=== PATIENT | male | born 1990 | race Caucasian/White ===

== ENCOUNTER 2017-05-03 09:17 | Observation (INO) | payer SELFPAY ==
[2017-05-03 09:20] VITALS: BP 132/85; PULSE 66; RESP 18; TEMP 98; O2SAT 100
--- NOTE | 2017-05-03 10:14 | PD ---
HPI Chief Complaint: Chest Pain Time Seen by Provider: 10:11 Travel History International Travel<30 days: Yes Contact w/Intl Traveler<30days: Yes Name of Country Traveled to: 04/14/17 [place] Traveled to known affect area: Yes History of Present Illness HPI 27-year-old male patient presents to the ER today with sudden onset of substernal chest pain which he states has now subsided is now a 2 out of 10. She states that it works is worse with movements and taking a deep breath. He denies any shortness of breath, coughing, or any other symptoms. He states that he had been on a cruise a few weeks ago to the [facility]. Denies any leg swelling or leg pain. He states it started when he was moving stuff and working on his car. Modifying Factors: Worse with movement and deep breath Associated Signs & Symptoms: Substernal chest pain Risk Factors: Recent trip PFSH Social History Tobacco Use: No Allergies-Medications Reported Meds & Prescriptions Reported Meds & Active Scripts Active Reported Oxycodone (Oxycodone HCl) 5 Mg Cap 5 Mg PO Q6H PRN Metoprolol Succinate ER 24 HR (Metoprolol Succinate) 100 Mg Tab 100 Mg PO DAILY Lisinopril 10 Mg Tab 10 Mg PO DAILY Glucose (Dextrose) 4 Gm Chew 4 Gm CHEW DIRECTED Flexeril (Cyclobenzaprine HCl) 10 Mg Tab 10 Mg PO TID Atorvastatin (Atorvastatin Calcium) 80 Mg Tab 80 Mg PO HS Citalopram (Citalopram Hydrobromide) 20 Mg Tab 20 Mg PO DAILY Aspirin Low Dose (Aspirin) 81 Mg Chew 81 Mg CHEW DAILY Review of Systems Except as stated in HPI: all other systems reviewed are Neg Physical Exam Narrative GENERAL: Well-developed young male patient currently in mild distress. Awake and oriented 3. SKIN: Focused skin assessment warm/dry. HEAD: Atraumatic. Normocephalic. EYES: Pupils equal and round. No scleral icterus. No injection or drainage. ENT: No nasal bleeding or discharge. Mucous membranes pink and moist. NECK: Trachea midline. No JVD. Supple. CARDIOVASCULAR: Regular rate and rhythm. No murmur appreciated. RESPIRATORY: No accessory muscle use. Clear to auscultation. Breath sounds equal bilaterally. GASTROINTESTINAL: Abdomen soft, non-tender, nondistended. Hepatic and splenic margins not palpable. MUSCULOSKELETAL: No obvious deformities. No clubbing. No cyanosis. No edema. NEUROLOGICAL: Awake and alert. No obvious cranial nerve deficits. Motor grossly within normal limits. Normal speech. PSYCHIATRIC: Appropriate mood and affect; insight and judgment normal. Data Data Last Documented VS Vital Signs Date Time Temp Pulse Resp B/P (MAP) Pulse Ox O2 Delivery O2 Flow Rate FiO2 05/03/17 10:47 100 Room Air 05/03/17 10:47 05/03/17 09:42 59 18 05/03/17 09:20 98.0 Orders Orders Electrocardiogram (05/03/17 10:11) Basic Metabolic Panel (Bmp) (05/03/17 10:11) Ckmb (Isoenzyme) Profile (05/03/17 10:11) Complete Blood Count With Diff (05/03/17 10:11) D-Dimer (05/03/17 10:11) Magnesium (Mg) (05/03/17 10:11) Prothrombin Time / Inr (Pt) (05/03/17 10:11) Act Partial Throm Time (Ptt) (05/03/17 10:11) Troponin I (05/03/17 10:11) Chest, Single Ap (05/03/17 10:11) Ecg Monitoring (05/03/17 10:11) Bilateral Bp Monitoring (05/03/17 10:11) Iv Access Insert/Monitor (05/03/17 10:11) Oximetry (05/03/17 10:11) Oxygen Administration (05/03/17 10:11) CKMB (05/03/17 10:43) CKMB% (05/03/17 10:43) Admit Order (Ed Use Only) (05/03/17 12:05) Labs Laboratory Tests Test 05/03/17 10:43 White Blood Count 5.9 TH/MM3 Red Blood Count 5.18 MIL/MM3 Hemoglobin 15.0 GM/DL Hematocrit 43.2 % Mean Corpuscular Volume 83.4 FL Mean Corpuscular Hemoglobin 29.0 PG Mean Corpuscular Hemoglobin Concent 34.8 % Red Cell Distribution Width 13.1 % Platelet Count 233 TH/MM3 Mean Platelet Volume 8.4 FL Neutrophils (%) (Auto) 55.6 % Lymphocytes (%) (Auto) 33.2 % Monocytes (%) (Auto) 8.5 % Eosinophils (%) (Auto) 1.9 % Basophils (%) (Auto) 0.8 % Neutrophils # (Auto) 3.3 TH/MM3 Lymphocytes # (Auto) 1.9 TH/MM3 Monocytes # (Auto) 0.5 TH/MM3 Eosinophils # (Auto) 0.1 TH/MM3 Basophils # (Auto) 0.0 TH/MM3 CBC Comment DIFF FINAL Differential Comment Prothrombin Time 10.6 SEC Prothromb Time International Ratio 1.0 RATIO Activated Partial Thromboplast Time 28.9 SEC D-Dimer Quantitative (PE/DVT) 0.27 MG/L FEU Blood Urea Nitrogen 14 MG/DL Creatinine 0.97 MG/DL Random Glucose 90 MG/DL Calcium Level 8.9 MG/DL Magnesium Level 2.3 MG/DL Sodium Level 137 MEQ/L Potassium Level 3.9 MEQ/L Chloride Level 101 MEQ/L Carbon Dioxide Level 27.9 MEQ/L Anion Gap 8 MEQ/L Estimat Glomerular Filtration Rate 92 ML/MIN Total Creatine Kinase 132 U/L Creatine Kinase MB 0.9 NG/ML Troponin I LESS THAN 0.02 NG/ML MDM Medical Decision Making Medical Screen Exam Complete: Yes Emergency Medical Condition: Yes Medical Record Reviewed: Yes Interpretation(s) EKG shows sinus bradycardia at a rate of 57 bpm, no ST elevation or depression, and no arrhythmias. No significant T-wave inversions. Laboratory Tests Test 05/03/17 10:43 Monocytes (%) (Auto) 8.5 % (0.0-8.0) Troponin I LESS THAN 0.02 NG/ML Last 24 hours Impressions Chest X-Ray 05/03/17 1011 Signed Impressions: Service Date/Time: Wednesday, May 03, 2017 10:15 - CONCLUSION: No acute disease. Jose Soto MD Differential Diagnosis Substernal chest pain: Musculoskeletal versus pneumothorax versus PE versus ACS Narrative Course Chest x-ray is unremarkable. D-dimer is negative. EKG did not show significant ST elevations or depressions. Cardiac enzymes are negative. However, this chest pain just started and will need to be evaluated further. Plan to admit the patient to chest pain center for further evaluation. Diagnosis Primary Impression: Atypical chest pain Admitting Information Admitting Physician Requests: Admit Marielos Ley MD May 03, 2017 10:14
[2017-05-03] MEDS ORDERED: METO1TAB43 PO (10:46)
[2017-05-03] MEDS ORDERED: CYCL10TA PO (10:46)
[2017-05-03] MEDS ORDERED: ASPI81CH6 CHEW (10:46)
[2017-05-03] MEDS ORDERED: GLUC4CHW CHEW (10:46)
[2017-05-03] MEDS ORDERED: CITA20TA4 PO (10:46)
[2017-05-03] MEDS ORDERED: ATOR80TA45 PO (10:46)
[2017-05-03] MEDS ORDERED: OXYC1CAP PO (10:46)
[2017-05-03] MEDS ORDERED: LISI10TA3 PO (10:46)
[2017-05-03 10:47] VITALS: O2SAT 100
[2017-05-03 11:03] LABS: AUTOMATED NEUTROPHIL # 3.3 TH/MM3 (1.8-7.7); BASOPHIL % 0.8 % (0.0-2.0); EOSINOPHIL # 0.1 TH/MM3 (0-0.4); EOSINOPHIL % 1.9 % (0.0-4.0); HEMATOCRIT 43.2 % (39.0-51.0); LYMPH % 33.2 % (9.0-44.0); LYMPHOCYTE # 1.9 TH/MM3 (1.0-4.8); MEAN CELL VOLUME 83.4 FL (80.0-100.0); MEAN CORPUSCULAR HGB CONC 34.8 % (32.0-36.0); MEAN PLATELET VOLUME 8.4 FL (7.0-11.0); MONO % 8.5 % (0.0-8.0); MONOCYTE # 0.5 TH/MM3 (0-0.9); NEUT % 55.6 % (16.0-70.0); PLATELET COUNT 233 TH/MM3 (150-450); RED BLOOD COUNT 5.18 MIL/MM3 (4.50-5.90); RED CELL DISTRIBUTION WIDTH 13.1 % (11.6-17.2); WHITE BLOOD COUNT 5.9 TH/MM3 (4.0-11.0)
[2017-05-03 11:19] LABS: BICARBONATE 27.9 MEQ/L (21.0-32.0); BLOOD UREA NITROGEN 14 MG/DL (7-18); CALCIUM 8.9 MG/DL (8.5-10.1); CHLORIDE 101 MEQ/L (98-107); CREATININE 0.97 MG/DL (0.60-1.30); D-DIMER 0.27 MG/L FEU (0.00-0.50); GLOMERULAR FILTRATION RATE 92 ML/MIN (>89); GLUCOSE,RANDOM 90 MG/DL (74-106); MAGNESIUM 2.3 MG/DL (1.5-2.5); PROTHROMBIN TIME - PATIENT 10.6 SEC (9.8-11.6); SODIUM (NA) 137 MEQ/L (136-145)
[2017-05-03 11:25] LABS: TROPONIN I LESS THAN 0.02 NG/ML (0.02-0.05)
--- NOTE | 2017-05-03 11:57 | RADRPT ---
EXAM DATE/TIME: 05/03/2017 10:15 [facility] COMPARISON: No previous studies available for comparison. INDICATIONS : Chest pain. MEDICAL HISTORY : None. SURGICAL HISTORY : None. ENCOUNTER: Initial ACUITY: 1 day PAIN SCORE: 2/10 LOCATION: Bilateral chest FINDINGS: A single view of the chest demonstrates the lungs to be symmetrically aerated without evidence of mas s, infiltrate or effusion. The cardiomediastinal contours are unremarkable. Osseous structures are intact. CONCLUSION: No acute disease. Jose Soto MD on May 03, 2017 at 11:54 Board Certified Radiologist. This report was verified electronically.
[2017-05-03 13:34] VITALS: BP 135/75; PULSE 56; RESP 18; O2SAT 99
--- NOTE | 2017-05-03 14:33 | EKG ---
Date Performed: 05/03/2017 Time Performed: 09:35:25 PTAGE: 27 years EKG: SINUS BRADYCARDIA BORDERLINE ECG NO PREVIOUS TRACING DOCTOR: Wendy Tadeo Interpretating Date/Time 05/03/2017 14:29:14
--- NOTE | 2017-05-03 14:59 | HHI.HP ---
HPI Primary Care Physician No Primary Care Physician Chief Complaint Chest pain History of Present Illness 27-year-old male with no past medical history presents to emergency room for further evaluation chest pain. Onset a.m. Location substernal. Characterized as a quick onset sharp pain. Severity moderate. No radiation. Duration 20 at 30 minutes. Associated symptoms included lightheadedness and diaphoresis. No known precipitating or relieving factors. Endorses hurt to take a deep breath. Although denies shortness of breath, nausea or vomiting. Reports similar pain last month and the month before as well, although episodes lasted only 3 minutes not as severe. Review of Systems General: No fatigue,weakness, fever, chills, or recent illness change in appetite. Has been initiated to help. HEENT: No HERNANDEZ, no vision changes, no nasal congestion or drainage, no dysphasia CV: As stated above. No current chest pain or pressure. No palpitations, intermittent leg pain, dizziness RESP: No SOB, cough, wheeze, recent URI, or history asthma. GI: No nausea, vomiting, bowel changes, diarrhea, constipation, pain, distention , melena, blood in the stool. : No dysuria, urgency, frequency EXT: No lower leg edema, no paraesthesias MS: No discomfort or change in ROM NEURO: No difficulty with balance, LOC, motor/sensory deficits PSYCH: No anxiety, depression SKIN: No rashes, no concerning lesions Past Family Social History Past Medical History None Past Surgical History None Reported Medications Reported Meds & Active Scripts Active Reported None Family History Father CABG at age 50. Social History No known hypertension, hyperlipoidemia, or diabetes. Lifelong nonsmoker. Denies illegal drug use. Works as a appliance mechanic. Past cardiac testing None Physical Exam Vital Signs Vital Signs Date Time Temp Pulse Resp B/P (MAP) Pulse Ox O2 Delivery O2 Flow Rate FiO2 05/03/17 13:34 56 18 135/75 (95) 99 Room Air 05/03/17 10:47 100 Room Air 05/03/17 10:47 100 Room Air 05/03/17 09:42 59 18 99 05/03/17 09:20 98.0 66 18 132/85 (101) 100 Physical Exam GENERAL: Alert WN, WD, NAD, pleasant, obese, male HEAD: NC, AT EYES: Sclera clear, conjunctiva without injection, pupils equal and round ENT: Mucous membranes pink and moist CV: RRR, without murmur, rub, gallop, no JVD, S1-S2 no S3-S4. No carotid bruits. Chest wall Nontender with palpation. RESP: Clear lungs throughout bilateral, no crackles, wheeze, rhonchi, symmetrical chest rise, nonlabored, able to speak in full sentences ABD: Soft, NT, ND, no masses, positive bowel tones EXT: Pulses +24, no dependent edema MS: Normal tone 4 extremities, nontender, no obvious deformities, full range of motion NEURO: CN II through CN XII grossly intact, motor strength 5/5, gait WNL PSYCH: A+O 3, pleasant affect, appropriate speech, mood, insight and judgment SKIN: Normal turgor, normal texture, no lesions, no rashes, brisk cap refill, even hair distribution Laboratory Laboratory Tests Test 05/03/17 10:43 White Blood Count 5.9 Red Blood Count 5.18 Hemoglobin 15.0 Hematocrit 43.2 Mean Corpuscular Volume 83.4 Mean Corpuscular Hemoglobin 29.0 Mean Corpuscular Hemoglobin Concent 34.8 Red Cell Distribution Width 13.1 Platelet Count 233 Mean Platelet Volume 8.4 Neutrophils (%) (Auto) 55.6 Lymphocytes (%) (Auto) 33.2 Monocytes (%) (Auto) 8.5 Eosinophils (%) (Auto) 1.9 Basophils (%) (Auto) 0.8 Neutrophils # (Auto) 3.3 Lymphocytes # (Auto) 1.9 Monocytes # (Auto) 0.5 Eosinophils # (Auto) 0.1 Basophils # (Auto) 0.0 CBC Comment DIFF FINAL Differential Comment Prothrombin Time 10.6 Prothromb Time International Ratio 1.0 Activated Partial Thromboplast Time 28.9 D-Dimer Quantitative (PE/DVT) 0.27 Blood Urea Nitrogen 14 Creatinine 0.97 Random Glucose 90 Calcium Level 8.9 Magnesium Level 2.3 Sodium Level 137 Potassium Level 3.9 Chloride Level 101 Carbon Dioxide Level 27.9 Anion Gap 8 Estimat Glomerular Filtration Rate 92 Total Creatine Kinase 132 Creatine Kinase MB 0.9 Troponin I LESS THAN 0.02 Result Diagram: 05/03/17 1043 05/03/17 1043 Imaging Last 48 hours Impressions Chest X-Ray 05/03/17 1011 Signed Impressions: Service Date/Time: Wednesday, May 03, 2017 10:15 - CONCLUSION: No acute disease. Jose Soto MD Course EKG Normal sinus bradycardia, normal axis, no ST or T-segment changes Caprini VTE Risk Assessment Caprini VTE Risk Assessment: No/Low Risk (score <= 1) Caprini Risk Assessment Model Point Value = 1 Point Value = 2 Point Value = 3 Point Value = 5 Age 41-60 Minor surgery BMI > 25 kg/m2 Swollen legs Varicose veins or History of unexplained or recurrent spontaneous Oral contraceptives or hormone replacement Sepsis (< 1 month) Serious lung disease, including pneumonia (< 1 month) Abnormal pulmonary function Acute myocardial infarction Congestive heart failure (< 1 month) History of inflammatory bowel disease Medical patient at bed rest Age 61-74 Arthroscopic surgery Major open surgery (> 45 min) Laparoscopic surgery (> 45 min) Malignancy Confined to bed (> 72 hours) Immobilizing plaster cast Central venous access Age >= 75 History of VTE Family history of VTE Factor V Leiden Prothrombin [id number] Lupus anticoagulant Anticardiolipin antibodies Elevated serum homocysteine Heparin-induced thrombocytopenia Other congenital or acquired thrombophilia Stroke (< 1 month) Elective arthroplasty Hip, pelvis, or leg fracture Acute spinal cord injury (< 1 month) Prophylaxis Regimen Total Risk Factor Score Risk Level Prophylaxis Regimen 0-1 Low Early ambulation 2 Moderate Order ONE of the following: *Sequential Compression Device (SCD) *Heparin 5000 units SQ BID 3-4 Higher Order ONE of the following medications: *Heparin 5000 units SQ TID *Enoxaparin/Lovenox 40 mg SQ daily (WT < 150 kg, CrCl > 30 mL/min) *Enoxaparin/Lovenox 30 mg SQ daily (WT < 150 kg, CrCl > 10-29 mL/min) *Enoxaparin/Lovenox 30 mg SQ BID (WT < 150 kg, CrCl > 30 mL/min) AND/OR *Sequential Compression Device (SCD) 5 or more Highest Order ONE of the following medications: *Heparin 5000 units SQ TID (Preferred with Epidurals) *Enoxaparin/Lovenox 40 mg SQ daily (WT < 150 kg, CrCl > 30 mL/min) *Enoxaparin/Lovenox 30 mg SQ daily (WT < 150 kg, CrCl > 10-29 mL/min) *Enoxaparin/Lovenox 30 mg SQ BID (WT < 150 kg, CrCl > 30 mL/min) AND *Sequential Compression Device (SCD) Assessment and Plan Assessment and Plan Atypical chest pain-admitted chest pain center. Ruled out with 1 set of EKGs and cardiac enzymes. Seen and evaluated by Dr. Arturo Chowdary. Perceive a exercise stress test evening. If unremarkable, plan to discharge home with follow-up with PCP. Reassurance provided. Continue to increase daily activity , weight lost, and avoiding sugary beverages. Encouraged dietary changes to included more fruits, vegetables, beans, legumes, and lean meats. Verbalized understanding. Rose Gonzalez May 03, 2017 14:59
[2017-05-03 16:40] VITALS: BP 128/77; PULSE 57; RESP 18; TEMP 98.1; O2SAT 99
--- NOTE | 2017-05-03 17:51 | HHI.DCPOC ---
Discharge Care Plan Diagnosis: (1) Atypical chest pain Goals to Promote Your Health * To prevent worsening of your condition and complications * To maintain your health at the optimal level Directions to Meet Your Goals Take your medications as prescribed Follow your dietary instruction Follow activity as directed Keep your appointments as scheduled Take your immunizations and boosters as scheduled If your symptoms worsen call your PCP, if no PCP go to Urgent Care Center or Emergency Room Smoking is Dangerous to Your Health. Avoid second hand smoke Call the 24-hour hour crisis hotline for domestic abuse at Rose Gonzalez May 03, 2017 17:51
--- NOTE | 2017-05-04 16:34 | TR ---
Date Performed: 05/03/2017 Time Performed: 17:07:53 DOCTOR: Joshua Raphael DRUG LIST: CLINICAL HISTORY: REASON FOR TEST: ATYPICAL CHEST PAIN REASON FOR ENDING: OBSERVATION: CONCLUSION: Duglas protocol completed. Stopped sec to exceeding target heart rate and leg fatigue . Maximum HH=114 Target HR Achieved=87.0% Maximum OF=463/94 Total Exercise Time=9:17. No reprod chest pain. No ectopy. No st t segment changes. Normal bp response. Recovery quick and unremarkable. Good exercise tolerance. COMMENTS:
== END 2017-05-03 18:56 | disposition home or self-care (01) ==
LOC: NEPE 09:17 → NEDA 12:06 → NEPGCP 15:30
PROVIDERS: ADMIT Internal Medicine Cardiovascular Disease; ATTEND Internal Medicine Cardiovascular Disease
DX: R07.89 Other chest pain (principal); R42 Dizziness and giddiness; R61 Generalized hyperhidrosis; R00.1 Bradycardia, unspecified; Z79.899 Other long term (current) drug therapy; Z79.82 Long term (current) use of aspirin
CPT/HCPCS: 71045; 80048; 82550; 82552; 83735; 84484; 85025; 85379; 85610; 85730; 93005; 93017; 99285; G0378